=== PATIENT | male | born 1985 | race Caucasian/White ===

== ENCOUNTER 2024-11-25 13:14 | Emergency (ER) | payer OTHER, SELFPAY ==
--- OUTSIDE RECORDS SUMMARY | 2024-01-29 09:00 | XMS RPT_ITS ---
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 Name Role Phone REFERRING, LUZ FINE ID Attending Unavailable [facility] Primary Care Unavailable PROBLEMS No Problem Records Found PROCEDURES No Procedure Records Found RESULTS MRI CARDIAC MORPHOLOGY AND F [facility] W+W/O CONT Observed: 01/29/2024 7:30 PM Status: F Source: [facility] ORIGINAL Patient Name: Tyrese Wilson BSA: Protocols: T2w/T1w axial DAE, Cine SSFP (FIESTA), T2 STIR, LGE Contrast: 36 cc Multihance Findings: Measurement Value Reference Range Left Ventricle LV Max wall thickness 1.2 cm (0.7-1.1 cm) (Anteroseptal wall) LVEDV: 217mL LVESV: 104mL LVEF: 52% RVEDV: 204mL RVEDV/BSA: 96ml/m2 RVEF: 37% Vessels Ascending Aorta 2.9 cm (1.9-3.7 cm) Descending Aorta 2.4 (1.5-2.8 cm) Pulmonary Artery 2.7 (2-2.7 cm) Pericardium Pericardial Thickness - Normal Pericardial Effusion - Trivial Atria Right Atrial Length 5.5 (3-5 cm) Coronary Sinus 0.9 cm (0.5-1.4 cm) Left Atrial Length (4 Chamber) 5.2 cm (3-5.1 cm) Left Atrial Length (2 Chamber) 5.4 cm (3-5.1 cm) Situs solitus, levoposition and levocardia. Atrioventricular and ventriculoarterial concordance. Normal orientation and position of a single right-sided superior vena cava and inferior vena cava without evidence of anomalous return. No evidence of anomalous pulmonary venous return. Origins and proximal course of the left main and right coronary arteries are not well-visualized. Extra-cardiac findings: Sequences obtained are designed for cardiac structures and not sensitive for extracardiac findings. Left ventricle shows mildly dilated LV with low-normal/mildly reduced LVEF. T2 STIR images do not show evidence of significant myocardial edema. LGE: No significant seen. Impression: 1. Technically difficult study due to frequent PVCs and significant challenges with gating. 2. No significant scar/LGE seen. 3. LV is mildly dilated with low-normal EF. 4. RV systolic function is calculated to be reduced and dilated. However, visually, no obvious ARVC features. Interpreted By: Andres Hdz Preliminary Report By: Andres Hdz Electronically Signed By: Andres Hdz Dictated Date: 02/05/2024 11:18:13 PM Prelim Date: 02/05/2024 11:18:13 PM Sign Date: 02/05/2024 11:31:32 PM Ordering Provider:Luz Referring ALLERGIES No Allergies Records Found ENCOUNTERS ADMIT/DISCHARGE ACCOUNT NUMBER ADMITTING ENCOUNTER CLASS LOC ATION SOURCE 01/29/2024/ [id number] Ambulatory ABuilding:[facility] MAIN PAYERS ENCOUNTER GUARANTOR PAYER SUBSCRIBER SOURCE 01/29/2024 TYRESE GUZMANB: [id number] [place], [place] [address]Rox: () Primary Insurance:BRIA CASTANEDA INSCOPolicy Number: [id number] Date:[id number] Name:[facility] [place]es [id number] [address]OO: TYRESE FRANCIS: [id number] [place], [place] [address]Zen: () () [facility]
[2024-11-25 13:14] VITALS: BP 154/78; PULSE 70; RESP 16; TEMP 37.1; O2SAT 99; BMI 32.5
--- NOTE | 2024-11-25 13:17 | RAD_ITS ---
PROCEDURE: CHEST PA AND LATERAL 11/25/2024 REASON FOR EXAM: CHEST PAIN TECHNIQUE: Procedure Code: RADCXR Modality: DX Procedure: CHEST PA AND LATERAL COMPARISON: None FINDINGS: Heart size and mediastinal configuration are within normal limits. There is no focal infiltrate or consolidation. There is no pneumothorax or effusion. There is no acute bony abnormality. There is no visible atherosclerosis. RAD/Chest PA and Lateral IMPRESSION: No acute process is identified in the chest. Reading Location: [facility]
--- NOTE | 2024-11-25 13:17 | EKG12_ITS ---
Test Reason : Blood Pressure : */* mmHG Vent. Rate : 67 BPM Atrial Rate : 67 BPM P-R Int : 190 ms QRS Dur : 78 ms QT Int : 380 ms P-R-T Axes : 38 18 9 degrees QTcB Int : 401 ms Normal sinus rhythm Normal ECG Confirmed by ELIZABETH GUILLEN, MADISON ([id number]), supervising editor trailer SOFIA MCMAHAN ([id number]) on 11/26/2024 8:09:16 AM Referred By: Confirmed By: MADISON JOHNSON MD
[2024-11-25 13:33] LABS: Hematocrit 42.2 % (40-54); Hemoglobin 14.6 g/dL (13.0-16.5); Immature Granulocytes Count 0.010 X10^3/uL (0.0-0.0); Mean Corp Hgb Conc 34.6 g/dL (32-36); Mean Corpuscular Volume 88.3 fL (80-94); Mean Platelet Vol. 10.6 fl (6.2-12.0); NRBC Flagged by Analyzer 0 % (0-5); Platelet Count 206 K/mm3 (150-450); RBC Distribution Width CV 13.2 % (11.6-14.6); RBC Distribution Width SD 42.7 fl (35.1-43.9); Red Blood Count 4.78 M/mm3 (4.6-6.2); White Blood Count 8.7 K/mm3 (4.4-11.0)
[2024-11-25 14:11] LABS: Anion Gap 12 (5-15); BUN 18 mg/dL (4-19); BUN/Creat Ratio 14.6 RATIO (10-20); Calcium,Total 9.4 mg/dL (7.6-11.0); Carbon Dioxide 25.6 mmol/L (21.0-32.0); Chloride 100 mmol/L (98-108); Estimated Creatinine Clearance 90.57 ml/min (50-250); Glucose 157 mg/dL (70-99); Potassium 4.2 mmol/L (3.3-5.1); Troponin T High Sensitivity < 6 ng/L (<=22)
--- NOTE | 2024-11-25 15:43 | ED.VIS.CHEST ---
HPI History of Present Illness Chief Complaint: Chest Pain Narrative Narrative: Patient is a 39-year-old male presenting to the emergency department for chest pain. Patient has a past medical history of frequent PVCs and had an ablation done with the [facility] in June. States that since then he has had daily chest pain that he describes as left-sided and "burning". Denies it radiating anywhere else. Denies any associated with activity. Denies any shortness of breath. Denies any diaphoresis, abdominal pain, nausea or vomiting. Had a stress test done on 11/22, 3 days ago at the [facility] due to continued chest pain that showed perfusion deficits in the mid to basal anterior lateral/inferior lateral lay worrisome for stress-induced perfusion abnormality. Left ventricular function with 49% function. Patient states that he was at his primary care doctor visit today and they just received the echo results and told him to come here for evaluation. CVD Risk Factors: Positive for Hypercholesterolemia [facility] Medical History Vitamin D deficiency Gout HTN (hypertension) Sexual dysfunction PTSD (post-traumatic stress disorder) GERD (gastroesophageal reflux disease) Hyperlipemia Depression with anxiety Home Medications Medication Instructions Recorded Last Taken Type aspirin 81 mg tablet 81 mg PO DAILY 11/25/24 11/25/24 History bisoprolol fumarate 5 mg tablet 2.5 mg PO DAILY 11/25/24 11/25/24 History cholecalciferol (vitamin D3) 50 50 mcg PO DAILY 11/25/24 11/25/24 History mcg (2,000 unit) capsule colchicine 0.6 mg tablet 0.6 mg PO DAILY 11/25/24 Unknown History duloxetine 30 mg capsule,delayed 30 mg PO DAILY 11/25/24 11/25/24 History release sprinkle etodolac 400 mg tablet 400 mg PO Q12H PRN pain 11/25/24 11/25/24 History famotidine 20 mg tablet 20 mg PO DAILY 11/25/24 11/25/24 History multivitamin 1 tab PO DAILY 11/25/24 Unknown History naloxone 4 mg/actuation nasal 4 mg intranasal Q3M 11/25/24 Unknown History spray (Narcan) omega 9-wfn-hpr-fish oil 1,200 mg 1 cap PO DAILY 11/25/24 11/25/24 History (144 mg-216 mg) capsule (Fish Oil) rosuvastatin 10 mg tablet 10 mg PO DAILY 11/25/24 11/25/24 History sildenafil 50 mg tablet (Viagra) 50 mg PO DAILY PRN sexual activity 11/25/24 Unknown History testosterone cypionate 200 mg/mL 60 mg subcut Q7D 11/25/24 Unknown History intramuscular oil Allergy/AdvReac Type Severity Reaction Status Date / Time No Known Allergies Allergy Verified 11/25/24 13:14 Surgical History H/O cardiac radiofrequency ablation Social History household members: family and children housing: house current occupational status: employed Smoking Status: Current every day smoker tobacco type: cigarettes ROS ROS ED ROS Narrative see HPI EXAM Physical Exam Narrative Exam Narrative: Vital signs: Reviewed General: Alert and oriented x 3. No acute distress HEENT: Head is normocephalic and atraumatic, sinuses nontender, pupils equal round and reactive. Nares are patent. Oropharynx and throat exams normal. Neck: Supple without lymphadenopathy nontender Cardiovascular: Regular rate and rhythm, no murmurs. No rubs or gallops. Normal S1 and S2 Chest: Pain is not reproducible to palpation Respiratory: Clear to auscultation bilaterally. No wheezes, rales, rhonchi Abdominal: Soft and nontender. Normal bowel sounds. No guarding or rebound. Nonsurgical abdomen Extremities: No lower extremity edema noted on exam. No tenderness. No bruising. Normal range of motion. Normal sensation. Skin: No rash or redness. Neurological: Cranial nerves II through XII are grossly intact. Normal strength and sensation. Normal cerebellar function The rest of the physical exam is unremarkable Const Vital Signs: 11/25/24 13:14 11/25/24 15:45 11/25/24 15:50 Temperature 98.7 F Temperature Source Oral Pulse Rate 70 66 Respiratory Rate 16 21 H Respiratory Effort Blood Pressure 154/78 H 108/63 Blood Pressure Mean 103 78 Pulse Ox 99 97 Oxygen Delivery Method Room Air Room Air 11/25/24 16:24 11/25/24 17:00 Temperature Temperature Source Pulse Rate 57 L Respiratory Rate 15 Respiratory Effort Normal Non-Labored Blood Pressure 129/85 H Blood Pressure Mean 99 Pulse Ox 98 Oxygen Delivery Method MDM MDM MDM Narrative Medical decision making narrative: Patient is a 39-year-old male presenting to the emergency department for chest pain and abnormal stress test done outpatient on Monday. Patient was seen and examined. Vitals are stable, resting in bed comfortably. No acute distress. Given 324 mg aspirin. EKG shows normal sinus rhythm. There are no ischemic changes. There is no dysrhythmia. Labs were obtained here. CBC with no leukocytosis and a normal hemoglobin. BMP with no significant abnormalities, creatinine very mildly elevated at 1.25. Mild hyperglycemia of 157, no anion gap or abnormal bicarb. Troponin and reflex are within normal limits at below 6. Chest x-ray was ordered and reviewed by myself. No opacities, pneumothorax or widened mediastinum. Radiology read with no acute process. Given the outpatient stress test results, I did speak with on-call cardiology, Dr. Ngyuen who agreed with admission for cath. Discussed with patient and he states he would like to have the cath done outpatient at the [facility]. I discussed risks and benefits of leaving and having the cath done outpatient given concern for a possible length the wait outpatient. Patient understands the risks and has capacity to make his own medical decisions. Still desires to leave. AMA paperwork was signed. Patient was encouraged to call the [facility] tomorrow for an appointment and to return anytime if he has any new or worsening symptoms or if he decides he would like to be admitted here for further workup. Patient understands. Clinical impression Abnormal stress test Chest pain History & Record Review Discussion w/independent historian: Patient Additional record(s) reviewed:: Prior outpatient record Lab Data Attestation: I reviewed the patient's lab results. Labs: Laboratory Results - last 24 hr 11/25/24 11/25/24 11/25/24 13:20 15:29 17:17 WBC 8.7 RBC 4.78 Hgb 14.6 Hct 42.2 MCV 88.3 MCH 30.5 MCHC 34.6 RDW Std Deviation 42.7 RDW Coeff of Gadiel 13.2 Plt Count 206 MPV 10.6 Immature Gran % (Auto) 0.100 Neut % (Auto) 43.5 L Lymph % (Auto) 47.0 H [place] % (Auto) 7.5 Eos % (Auto) 1.0 Baso % (Auto) 0.9 Absolute Neuts (auto) 3.8 Absolute Lymphs (auto) 4.08 Nucleated RBC % 0 Sodium 137 Potassium 4.2 Chloride 100 Carbon Dioxide 25.6 Anion Gap 12 BUN 18 Creatinine 1.25 H Estim Creat Clear Calc 90.57 Est GFR (MDRD) Non-Af 74 BUN/Creatinine Ratio 14.6 Glucose 157 H Calcium 9.4 Troponin T High Sens < 6 Troponin T Hi Sens 2 Hr < 6 Troponin T Hi Sens 4Hr Cancelled Radiography Chest X-Ray - ED: 2 View, Read by ED Physician, Normal, No Acute Disease and No Infiltrates Diagnostic Testing: Clinical Impression(s) from Imaging Studies Chest X-Ray 11/25/24 13:17 IMPRESSION: No acute process is identified in the chest. Reading [facility] Discharge Plan Triage Chief Complaint: Chest Pain ED Provider: Mary Ellen Byrd Dx/Rx/DC Orders Clinical Impression: Chest pain, Abnormal cardiovascular stress test Instructions: What Is Angina? Prescriptions: No Action testosterone cypionate 200 mg/mL oil 60 mg subcut Q7D Patient Comments: has not started yet Rx Instructions: twice a week duloxetine 30 mg capsule, delayed rel sprinkle 30 mg PO DAILY bisoprolol fumarate 5 mg tablet 2.5 mg PO DAILY rosuvastatin 10 mg tablet 10 mg PO DAILY sildenafil [Viagra] 50 mg tablet 50 mg PO DAILY PRN (Reason: sexual activity) Rx Instructions: administer 30 minutes to 4 hours before activity famotidine 20 mg tablet 20 mg PO DAILY etodolac 400 mg tablet 400 mg PO Q12H PRN (Reason: pain) aspirin 81 mg tablet 81 mg PO DAILY colchicine 0.6 mg tablet 0.6 mg PO DAILY cholecalciferol (vitamin D3) 50 mcg (2,000 unit) capsule 50 mcg PO DAILY naloxone [Narcan] 4 mg/actuation spray,non-aerosol 4 mg intranasal Q3M Rx Instructions: spray 1 dose into ONE nostril; alternate nostrils w each dose until help arrives omega 6-nvi-ipq-fish oil [Fish Oil] 1,200 (144-216) mg capsule 1 cap PO DAILY multivitamin Tablet 1 tab PO DAILY [facility] Provider[facility] Referrals: Kye Koo MD [Non-Staff, Family Practice] - As soon as possible Activity Restrictions/Additional Instructions: [facility]. You left the hospital AGAINST MEDICAL ADVICE. If you develop any new or worsening symptoms or wish to be reevaluated and admitted you can return to the emergency department at any time. Print Language: [place] Disposition Disposition: Home, Self Care Discharge Date/Time: 11/25/24 18:15
[2024-11-25 15:45] VITALS: O2SAT 97
[2024-11-25 15:50] VITALS: BP 108/63; PULSE 66; RESP 21
[2024-11-25 16:08] LABS: Troponin T High Sens 2 HR < 6 ng/L (<=22)
[2024-11-25 17:00] VITALS: BP 129/85; PULSE 57; RESP 15; O2SAT 98
--- NOTE | 2024-11-25 17:55 | PCM.CONS.C ---
Assessment & Plan Assessment/Plan (1) Chest pain: PLAN: He presents with chest pain which appears to be noncoronary at this particular time. The features are atypical his cardiac enzymes are completely normal. I spent a fair amount of time discussing with him about the likely etiologies in front of his parents. He did state to me that he wants to go home and I did suggest that based on the lab test thus far his risk is low. I also did not think that this was coronary in origin and that the stress test was likely a false positive but this needs to be investigated further. The ideal thing would be to have him admitted and perform a cardiac catheterization so that other etiologies can be explored. He however suggest that he wants to go home and my understanding is that he is being signed out AMA by the emergency room physician. Above has been discussed with the admitting hospitalist Dr. Ryan Omer. Thank you for allowing me to participate in the care of your patient. Please don't hesitate to call if any issues arise. HPI Consult Data Date of Consult: 11/25/24 HPI Narrative HPI Narrative: TYRESE MONET, is a 39 M who presents to the emergency room with complaints of chest discomfort. This apparently has been going on since his ablation 4 months ago. 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 He also claims that he had Lyme disease many years ago. As part of his workup he underwent a pharmacologic stress test which demonstrated mild anterior ischemia and he went to see his primary physician and they asked him to come to the emergency room because of continued chest discomfort. He was evaluated in the emergency room his EKG did not demonstrate any significant abnormalities other than premature ventricular complexes cardiac enzymes were normal and cardiology was called for an opinion as to whether he should go home or undergo further workup such as a cardiac catheterization. At this particular time he says that he has mild chest discomfort but no different from what he has had before. He has been on his medications in the past. [ ] [facility] Medical History Vitamin D deficiency Gout HTN (hypertension) Sexual dysfunction PTSD (post-traumatic stress disorder) GERD (gastroesophageal reflux disease) Hyperlipemia Depression with anxiety Home Medications Medication Instructions Recorded Last Taken Type aspirin 81 mg tablet 81 mg PO DAILY 11/25/24 11/25/24 History bisoprolol fumarate 5 mg tablet 2.5 mg PO DAILY 11/25/24 11/25/24 History cholecalciferol (vitamin D3) 50 50 mcg PO DAILY 11/25/24 11/25/24 History mcg (2,000 unit) capsule colchicine 0.6 mg tablet 0.6 mg PO DAILY 11/25/24 Unknown History duloxetine 30 mg capsule,delayed 30 mg PO DAILY 11/25/24 11/25/24 History release sprinkle etodolac 400 mg tablet 400 mg PO Q12H PRN pain 11/25/24 11/25/24 History famotidine 20 mg tablet 20 mg PO DAILY 11/25/24 11/25/24 History multivitamin 1 tab PO DAILY 11/25/24 Unknown History naloxone 4 mg/actuation nasal 4 mg intranasal Q3M 11/25/24 Unknown History spray (Narcan) omega 3-lnu-wdp-fish oil 1,200 mg 1 cap PO DAILY 11/25/24 11/25/24 History (144 mg-216 mg) capsule (Fish Oil) rosuvastatin 10 mg tablet 10 mg PO DAILY 11/25/24 11/25/24 History sildenafil 50 mg tablet (Viagra) 50 mg PO DAILY PRN sexual activity 11/25/24 Unknown History testosterone cypionate 200 mg/mL 60 mg subcut Q7D 11/25/24 Unknown History intramuscular oil Allergy/AdvReac Type Severity Reaction Status Date / Time No Known Allergies Allergy Verified 11/25/24 13:14 Surgical History H/O cardiac radiofrequency ablation Social History household members: family and children housing: house current occupational status: employed Smoking Status: Current every day smoker tobacco type: cigarettes ROS Constitutional Constitutional: Denies fever(s) or weight loss Eyes Eyes: Reports systems reviewed and no addt'l complaints, except as documented ENT HEENT: Reports systems reviewed and no addt'l complaints, except as documented Cardiovascular Cardiovascular: Reports chest pain at rest and chest pain with activity; Denies dyspnea at rest, dyspnea on exertion, edema, palpitations or paroxysmal nocturnal dyspnea Respiratory/Chest Respiratory/Chest: Denies dyspnea on exertion, productive cough, shortness of breath at rest or shortness of breath with exertion Gastrointestinal Gastrointestinal: Denies change in bowel habits, nausea, vomiting or weight changes Genitourinary Genitourinary: Denies difficulty urinating Musculoskeletal Musculoskeletal: Denies joint stiffness or muscle weakness Integumentary Integumentary: Denies lesions Neurologic Neurologic: Denies dizziness or syncope Psychiatric Psychiatric: Denies anxiety Endocrine Endocrinology: Denies excessive sweating or fatigue Hematologic/Lymphatic Hematologic/Lymphatic: Denies anemia Allergic/Immunologic Allergic/Immunologic: Denies seasonal rhinorrhea Physical Exam Const alert, oriented x3 and no apparent distress General Appearance: cooperative HEENT hearing grossly normal bilaterally Head and Scalp: atraumatic Eyes EOMs intact bilaterally Neck General: normal visual inspection Chest inspection of chest normal and palpation of chest normal Resp normal respiratory effort Auscultation: clear to auscultation bilaterally Cardio regular rate, regular rhythm, S1 normal heart sound and S2 normal heart sound Jugular Venous Distention: JVD GI normal to inspection, nondistended, normoactive bowel sounds Extremity normal capillary refill and no pedal edema Peripheral Pulses: Yes pulses 2+ throughout and femoral pulses present Skin no rashes or lesions noted Neuro oriented x3 and CN's II-XII intact bilaterally Psych Appearance: grossly normal and appropriate Objective Data Vital Signs: Vital Signs Temp Pulse Resp BP Pulse Ox O2 Del Method 98.7 F 57 L 15 129/85 H 98 Room Air 11/25/24 13:14 11/25/24 17:00 11/25/24 17:00 11/25/24 17:00 11/25/24 17:00 11/25/24 15:45 Oxygen Delivery Method Room Air Weight: 220 lb Body Mass Index (BMI) 32.5 Lab / Micro Data 11/25/24 13:20 11/25/24 13:20 Labs: Laboratory Results - last 24 hr 11/25/24 13:20: WBC 8.7, RBC 4.78, Hgb 14.6, Hct 42.2, MCV 88.3, MCH 30.5, MCHC 34.6, RDW Std Deviation 42.7, RDW Coeff of Gadiel 13.2, Plt Count 206, MPV 10.6, Immature Gran % (Auto) 0.100, Neut % (Auto) 43.5 L, Lymph % (Auto) 47.0 H, [place] % (Auto) 7.5, Eos % (Auto) 1.0, Baso % (Auto) 0.9, Absolute Neuts (auto) 3.8, Absolute Lymphs (auto) 4.08, Nucleated RBC % 0, Sodium 137, Potassium 4.2, Chloride 100, Carbon Dioxide 25.6, Anion Gap 12, BUN 18, Creatinine 1.25 H, Estim Creat Clear Calc 90.57, Est GFR (MDRD) Non-Af 74, BUN/Creatinine Ratio 14.6, Glucose 157 H, Calcium 9.4, Troponin T High Sens < 6 11/25/24 15:29: Troponin T Hi Sens 2 Hr < 6 Cardiology Labs/Tests 11/25/24 13:20: WBC 8.7, RBC 4.78, Hgb 14.6, Hct 42.2, MCV 88.3, MCH 30.5, MCHC 34.6, Plt Count 206, MPV 10.6, Immature Gran % (Auto) 0.100, Neut % (Auto) 43.5 L, Lymph % (Auto) 47.0 H, [place] % (Auto) 7.5, Eos % (Auto) 1.0, Baso % (Auto) 0.9, Absolute Neuts (auto) 3.8, Nucleated RBC % 0, Sodium 137, Potassium 4.2, Chloride 100, Carbon Dioxide 25.6, Anion Gap 12, BUN 18, Creatinine 1.25 H, Est GFR (MDRD) Non-Af 74, BUN/Creatinine Ratio 14.6, Glucose 157 H, Calcium 9.4 Rhythm: EKG: ECHO: Stress Test: Cardiac Cath: PCI: CT Surgery: Holter monitor: EPS: PPM: CXR: Chest CT Scan: Radiography Diagnostic Testing: Radiology Impression Chest X-Ray 11/25/24 13:17 IMPRESSION: No acute process is identified in the chest. Reading Location: [facility] Risk Score for UA/STEMI Assesmment (YES = 1) Risk Stratification Applicable: Yes Age > or = 65: No > or = 3 CAD risk factors (HTN, Hypercholesterolemia, Diabetes, family hx, current smoker): No Known CAD (Stenosis > or = 50%): No ASA used in past 7 days: No Severe angina (> or = 2 episodes in 24 hrs): No EKG ST change > or = 0.5mm: No Positive cardiac markers: No Score [facility] Risk Score of mortality/ recurrent ischemic event over the next 14 days: 0-1 = 4.7% - Low Risk
== END 2024-11-25 18:15 | disposition left against medical advice (07) ==
PROVIDERS: Emergency Provider Student in an Organized Health Care Education/Training Program; Visit Provider Student in an Organized Health Care Education/Training Program
DX: R07.89 Other chest pain (principal); R94.39 Abnormal result of other cardiovascular function study; R73.9 Hyperglycemia, unspecified; Z53.29 Procedure and treatment not carried out because of patient's decision for other reasons; I10 Essential (primary) hypertension; K21.9 Gastro-esophageal reflux disease without esophagitis; F41.8 Other specified anxiety disorders; E55.9 Vitamin D deficiency, unspecified; E78.00 Pure hypercholesterolemia, unspecified; F43.10 Post-traumatic stress disorder, unspecified; M10.9 Gout, unspecified; F17.210 Nicotine dependence, cigarettes, uncomplicated; Z79.82 Long term (current) use of aspirin; Z79.899 Other long term (current) drug therapy
CPT/HCPCS: 71046; 80048; 84484; 85025; 93005; 99284; A4216